=== PATIENT | male | born 1950 | race Caucasian/White ===

== ENCOUNTER 2017-11-02 05:05 | Emergency (ER) | payer BC, OTHER ==
[~2017-11-02] VITALS: Ht 170.2 cm; Wt 78.0 kg
[~2017-11-02 05:05] MED LIST: AMLO5TAB3 PO; ATOR40TA PO; CLOP75TA PO; LEVO500T6 PO; METF1TAB4 PO; METO25TE71 PO; RIVA15TA1 PO; RIVA20TA PO
[2017-11-02 05:08] VITALS: BP 152/80
--- NOTE | 2017-11-02 05:13 | NUR ---
PT AMBULATED TO BED 3
--- NOTE | 2017-11-02 05:30 | NUR ---
Attempted to insert 16 fr Leigh cath. Pt unable to tolerate. Pt unable to relax bladder sphincter and unable to pass. Notified Dr Robledo.
[2017-11-02] MEDS ORDERED: MORPHINE SULFATE 4 MG/ML SYR IM ONE (05:35)
--- NOTE | 2017-11-02 05:49 | NUR ---
Dr. Robledo evaluating patient at bedside.
[2017-11-02] MEDS ORDERED: LIDOCAINE JELLY 2% 30 ML TUBE TP ONE ×2 (05:55→05:57)
--- NOTE | 2017-11-02 06:05 | NUR ---
Using a 14 fr coude cath and Lidocaine jelly for lubricant, inserted lewis with clear yellow urine return. Joe with some pain but able to pass.
[2017-11-02 06:30] VITALS: BP 143/90
[2017-11-02] MEDS ORDERED: ONDANSETRON 4 MG ODT PO ONE (06:30)
== END 2017-11-02 06:30 | disposition home or self-care (01) ==
LOC: MED 05:05
DX: R33.9 Retention of urine, unspecified (principal); R10.32 Left lower quadrant pain; E11.9 Type 2 diabetes mellitus without complications; I10 Essential (primary) hypertension
CPT/HCPCS: 51702; 96372; 99284; J2270